=== PATIENT | female | born 1980 | race Caucasian/White ===

== ENCOUNTER 2019-09-22 16:16 | Emergency (ER) | payer SELFPAY ==
[~2019-09-22] VITALS: Ht 167.6 cm; Wt 100.0 kg
[2019-09-22] MEDS ORDERED: MORPHINE SULFATE 10 MG/ML VIAL. IM ONE (16:45)
[2019-09-22] MEDS ORDERED: LIDOCAINE 1%/EPI 1:100,000 20 ML VIAL. INJ ONE (16:45)
[2019-09-22] MEDS ORDERED: cefTRIAXone IM 1 GM VIAL IM ONE (16:45)
[2019-09-22] MEDS ORDERED: SMZ/TMP 800/160MG TABLET. PO ONE (16:45)
[2019-09-22] MEDS ORDERED: DIPH,PERTUSS(ACELL),TET VAC/PF 0.5 ML SYRINGE. VAX IM ONE (16:45)
[2019-09-22] MEDS ORDERED: LIDOCAINE 1% PF 2 ML VIAL. INJ ONE (16:45)
--- NOTE | 2019-09-22 16:53 | PHYS DOC ---
Past Medical History Past Medical History: Hypertension Past Surgical History: Other Additional Past Surgical Histo: breast lumpectomy Smoking Status: Current Every Day Smoker Alcohol Use: None Drug Use: None General Adult EDM: Chief Complaint: BREAST PROBLEM HPI: HPI: Patient is a 39 year old female with history of hypertension who presents to the ED today complaining of right breast abscess that began 4 days ago. Patient denies any fever. Denies any nausea vomiting. Denies any history of breast cancer but reports history of benign cyst to the right breast which was removed. Review of Systems: Review of Systems: Constitutional: Denies fever or chills. [] Musculoskeletal: Denies back pain or joint pain. [] Integument: Reports right breast abscess Neurologic: Denies headache, focal weakness or sensory changes. [] Psychiatric: Denies depression or anxiety. [] Heart Score: Risk Factors: Risk Factors: DM, Current or recent (<one month) smoker, HTN, HLP, family history of CAD, obesity. Risk Scores: Score 0 - 3: 2.5% MACE over next 6 weeks - Discharge Home Score 4 - 6: 20.3% MACE over next 6 weeks - Admit for Clinical Observation Score 7 - 10: 72.7% MACE over next 6 weeks - Early Invasive Strategies Current Medications: Current Medications Medications (Trade) Dose Ordered Sig/Sherri Start Time Stop Time Status Last Admin Dose Admin Ceftriaxone Sodium (Rocephin Im) 1 gm 1X ONCE 09/22/19 16:45 09/22/19 16:46 DC Diphtheria/ Tetanus/Acell Pertussis (ADACEL TDap SYRINGE) 0.5 ml ONCE ONCE 09/22/19 16:45 09/22/19 16:48 DC Lidocaine HCl (Xylocaine-Mpf 1% 2ml Vial) 2 ml 1X ONCE 09/22/19 16:45 09/22/19 16:46 DC Lidocaine/ Epinephrine (LIDOCAINE 1%-EPI 1:100,000 Multi-Dose) 20 ml 1X ONCE 09/22/19 16:45 09/22/19 16:46 DC Morphine Sulfate (Morphine Sulfate) 5 mg 1X ONCE 09/22/19 16:45 09/22/19 16:46 DC Trimethoprim/ Sulfamethoxazole (Bactrim Ds) 1 tab 1X ONCE 09/22/19 16:45 09/22/19 16:46 DC Allergies: Allergies: Allergies Coded Allergies Type Severity Reaction Last Updated Verified No Known Drug Allergies 12/02/14 No Physical Exam: PE: Constitutional: Well developed, well nourished, no acute distress, non-toxic appearance. [] Skin: Pendulous breast, underneath the right breast at approximately 12:30 o'clock position there is a indurated area approximately 2 x 3 cm with surrounding approximately 4 cm of cellulitis. The area is warm tender to touch but fluctuant. There is no nipple drainage, there is no nipple dimpling. Back: No tenderness, no CVA tenderness. [] Extremities: No tenderness, no cyanosis, no clubbing, ROM intact, no edema. [] Neurologic: Alert and oriented X 3, normal motor function, normal sensory function, no focal deficits noted. [] Psychologic: Affect normal, judgement normal, mood normal. [] Current Patient Data: Vital Signs: Vital Signs Date Time Temp Pulse Resp B/P (MAP) Pulse Ox O2 Delivery O2 Flow Rate FiO2 09/22/19 16:20 98.3 125 20 209/118 (148) 96 Room Air 98.3 EKG: EKG: [] Radiology/Procedures: Radiology/Procedures: Indication: abscess right breast Procedure: The patient was positioned appropriately. Local anesthesia was 1% of lidocaine with epinephrine. An incision was then made over the apex of the lesion with an 11 blade and mild amount of bloody yellow material was expressed. The drainage cavity was irrigated and covered with sterile gauze. The patients tetanus status updated as needed. The patient tolerated the procedure well. Complications: none.[] Course & Med Decision Making: Course & Med Decision Making Pertinent Labs and Imaging studies reviewed. (See chart for details) This is a 39-year-old female patient presenting to the ED today with right breast abscess. Patient's abscess was drained by me as noted in procedures. Tetanus was updated. She was given Rocephin IM in the ED. She was discharged with cephalexin and Bactrim. Wound care instructions provided. Follow-up with PCP in 1 to 2 weeks. Yuval Disclaimer: Yuval Disclaimer: This electronic medical record was generated, in whole or in part, using a voice recognition dictation system. Departure Departure Impression: Primary Impression: Abscess of right breast Additional Impression: Cellulitis of right breast Disposition: HOME, SELF-CARE Condition: STABLE Referrals: NO PCP (PCP) HENRI PALM MD follow up in 2 weeks Patient Instructions: Abscess, Care After Additional Instructions: You have an abscess of the right breast that was drained. Please keep the area clean and dry. Apply warm compresses to the area 2-3 times a day. Take the prescribed antibiotics until completed. Take the pain medicine as needed for pain. Follow-up with the provided general surgeon or your own doctor in 2 weeks Scripts Hydrocodone/Apap 5-325 (NORCO 5-325 TABLET) 1 Each Tablet 1 TAB PO Q6HRS, #14 TAB Prov: DWAYNE TIAN APRN 6/2/20 Sulfamethoxazole/Trimethoprim (BACTRIM DS TABLET) 1 Each Tablet 1 TAB PO BID for 10 Days, #20 TAB 0 Refills Prov: DWAYNE TIAN APRN 6/2/20 Cephalexin (CEPHALEXIN) 500 Mg Tablet 1 TAB PO QID, #40 TAB Prov: DWAYNE TIAN APRN 6/2/20 DWAYNE TIAN APRN Sep 22, 2019 16:53
[2019-09-22 17:30] VITALS: BP 149/86
[2019-09-22] MEDS ORDERED: CEPH500T PO (17:42)
[2019-09-22] MEDS ORDERED: SULF1TAB24 PO (17:42)
[2019-09-22] MEDS ORDERED: HYDR-3164 PO (17:43)
== END 2019-09-22 17:49 | disposition home or self-care (01) ==
LOC: ER 16:16
DX: N61.1 Abscess of the breast and nipple (principal); I10 Essential (primary) hypertension; F17.200 Nicotine dependence, unspecified, uncomplicated
CPT/HCPCS: 10060; 90471; 90715; 96372; 99284; J0696; J2270; J3490